=== PATIENT | male | born 1975 | race Caucasian/White ===

== ENCOUNTER 2020-08-20 01:50 | Emergency (ER) | payer OTHER, SELFPAY ==
[2020-08-20] VITALS (28 sets, daily range): BP systolic 130–167; BP diastolic 87–104; PULSE 64–100; RESP 12–24; TEMP 35.9–36.7; O2SAT 87–100
--- NOTE | ~2020-08-20 | XR_ITS ---
EXAMINATION: XR ankle LT min 3V DATE: 08/20/2020 02:16 INDICATION: Left ankle pain. TECHNIQUE: 3 views of left ankle were obtained. COMPARISON: None. FINDINGS: There is an oblique fracture of the medial malleolus. The distal fracture fragment demonstr ates 8 mm lateral displacement and 3 mm distraction. There is a comminuted fracture of distal fibular diaphysis. The distal fracture fragment demonstrates 26 degrees lateral angulation and 3 mm anterior displacement. There is abnormal bone alignment at Lisfranc joint on the lateral view. The talar dome is normal. IMPRESSION: 1. Oblique fracture of medial malleolus. 2. Comminuted fracture of distal fibular diaphysis. 3. Abnormal bone alignment Lisfranc joint on the lateral view suspicious for fracture or subluxation. Foot radiographs are recommended. Reviewed, dictated and finalized at location A. IMPRESSION: 1. Oblique fracture of medial malleolus. 2. Comminuted fracture of distal fibular diaphysis. 3. Abnormal bone alignment Lisfranc joint on the lateral view suspicious for fr acture or subluxation. Foot radiographs are recommended.
[2020-08-20] MEDS: HYDROmorphone HCL INJ (*CRX) 1 MG/ML SYR IV PUSH (02:51)
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
--- NOTE | 2020-08-20 04:48 | PC.NURSE ---
VORB to give patient 0.5mg Dilaudid IVP prior to splinting patient.
[2020-08-20] MEDS: HYDROmorphone HCL INJ (*CRX) 1 MG/ML SYR 0.5 MG IV PUSH (04:52)
== END 2020-08-20 05:25 | disposition short-term general hospital (02) ==
PROVIDERS: Emergency Provider Emergency Medicine
DX: S82.52XA Displaced fracture of medial malleolus of left tibia, initial encounter for closed fracture (principal); S89.392A Other physeal fracture of lower end of left fibula, initial encounter for closed fracture; J45.909 Unspecified asthma, uncomplicated
CPT/HCPCS: 29515; 73610; 96374; 96376; 99285; J1170